=== PATIENT | female | born 1945 | race Caucasian/White ===

== ENCOUNTER → 2016-11-24 | Outpatient (CLI) | payer MEDICARE ==
[~2016-11-24] MED LIST: ASPI-650 PO; ATOR40TA78 PO; CLOP75TA PO; LISI-170 PO
[2016-11-24 15:34] LABS: ASPARTATE AMINO TRANSFERASE 20 U/L (15-37); BLOOD UREA NITROGEN 17 mg/dL (7-18)
== END | disposition home or self-care (01) ==
LOC: STAR 14:13
PROVIDERS: ATTEND Surgery
DX: Z01.818 Encounter for other preprocedural examination (principal)
CPT/HCPCS: 36415; 80053; 85025; 93005

== ENCOUNTER 2016-11-30 10:00 | Inpatient (IN) | payer MEDICARE ==
[~2016-11-30] VITALS: Ht 167.6 cm; Wt 69.7 kg
[2016-12-02] MEDS ORDERED: LACTATED RINGERS 1,000 ML IV SCH (07:14)
[2016-12-02] MEDS ORDERED: FENTANYL PF 250 MCG/5ML ONE (08:28)
[2016-12-02] MEDS ORDERED: HEPARIN 1,000 UNITS/ML, 10ML ONE (09:24)
[2016-12-02] MEDS ORDERED: LIDOCAINE/PF 1%, 30ML ONE (09:25)
[2016-12-02] MEDS ORDERED: BUPIVACAINE/PF-EPI 0.5% 1:200K ONE (09:25)
[2016-12-02] MEDS ORDERED: THROMBIN 20,000 UNIT VIAL TP ONE (09:25)
[2016-12-02] MEDS ORDERED: BACITRACIN 50,000 UNIT ONE (09:25)
[2016-12-02] MEDS ORDERED: MEPERIDINE/PF 25MG/0.5ML IVPush PRN (10:00)
[2016-12-02] MEDS ORDERED: METOCLOPRAMIDE 5 MG/ML, 2ML IV PRN (10:00)
[2016-12-02] MEDS ORDERED: PROMETHAZINE 25 MG/ML, 1ML IV PRN (10:00)
[2016-12-02] MEDS ORDERED: FENTANYL PF 100 MCG/2ML IV PRN (10:00)
[2016-12-02] MEDS ORDERED: hydrALAzine 20 MG/ML, 1ML IV PRN (10:00)
[2016-12-02] MEDS ORDERED: LABETALOL 5MG/ML, 20ML IV PRN (10:00)
[2016-12-02] MEDS ORDERED: HYDROmorphone 1 MG/ML, 1ML IV PRN (10:00)
[2016-12-02] MEDS ORDERED: ONDANSETRON 2MG/ML, 2ML IVPush PRN (10:00)
[2016-12-02] MEDS ORDERED: OXYcodone 5 MG/5 ML ORAL.SOL UDC PO PRN (10:00)
[2016-12-02] MEDS ORDERED: ACETAMINOPHEN 325 MG TABLET PO PRN ×2 (10:00→16:00)
[2016-12-02] MEDS ORDERED: PROTAMINE SULFATE 10 MG/ML, 5ML ONE (11:34)
[2016-12-02] MEDS ORDERED: DEXAMETHASONE 4 MG/ML, 1ML ONE (15:38)
[2016-12-02] MEDS ORDERED: NEOSTIGMINE 1 MG/ML, 10ML ONE (15:38)
[2016-12-02] MEDS ORDERED: ROCURONIUM 10 MG/ML ONE (15:38)
[2016-12-02] MEDS ORDERED: PHENYLEPHRINE 10 MG/ML ONE (15:38)
[2016-12-02] MEDS ORDERED: GLYCOPYRROLATE 0.2MG/1ML ONE (15:38)
[2016-12-02] MEDS ORDERED: EPHEDRINE 50 MG/ML, 1ML ONE (15:38)
[2016-12-02] MEDS ORDERED: ONDANSETRON 2MG/ML, 2ML ONE (15:38)
[2016-12-02] MEDS ORDERED: CEFAZOLIN 1,000 MG ONE (15:38)
[2016-12-02] MEDS ORDERED: PROPOFOL 10 MG/ML, 20ML ONE (15:38)
[2016-12-02] MEDS ORDERED: LABETALOL 5MG/ML, 20ML IVPush PRN (16:00)
[2016-12-02] MEDS ORDERED: ENOXAPARIN 40 MG/0.4 ML SQ SCH (16:00)
[2016-12-02] MEDS ORDERED: morphine SULFATE 10 MG/ML, 1ML IV PRN (16:00)
[2016-12-02] MEDS ORDERED: ONDANSETRON 2MG/ML, 2ML IV PRN (16:00)
[2016-12-02] MEDS ORDERED: HYDROcodone/APAP 5/325 TABLET PO PRN (16:00)
[2016-12-02] MEDS: POTASSIUM CHLORIDE 20 MEQ in D5%-LACTATED RINGERS 1,000 ML IV SCH (17:09)
[2016-12-02 18:55] VITALS: BP 97/51
[2016-12-02] MEDS ORDERED: CLOPIDOGREL 75 MG TABLET PO SCH (21:00)
[2016-12-02] MEDS ORDERED: ATORVASTATIN 40 MG TABLET PO SCH (21:00)
[2016-12-03 00:13] VITALS: BP 87/49
[2016-12-03 03:53] VITALS: BP 112/66
[2016-12-03] MEDS: POTASSIUM CHLORIDE 20 MEQ in D5%-LACTATED RINGERS 1,000 ML IV SCH (05:50)
[2016-12-03] MEDS ORDERED: ASPIRIN 325 MG TABLET EC PO SCH (06:00)
[2016-12-03 06:55] VITALS: BP 139/73
[2016-12-03] MEDS ORDERED: HYDR-3240 PO (07:35)
[2016-12-03] MEDS ORDERED: ONDA4TAB10 PO (07:36)
[2016-12-03] MEDS ORDERED: DOCU-30 PO (07:36)
[2016-12-03] MEDS ORDERED: LISINOPRIL 20 MG TABLET PO SCH (09:00)
== END 2016-12-03 08:50 | disposition home or self-care (01) | DRG 39 ==
LOC: ORIP 12-02 06:56 → 4NOR 12-02 15:14
PROVIDERS: ADMIT Surgery; ATTEND Surgery
PROC: 03UL0KZ Supplement Left Internal Carotid Artery with Nonautologous Tissue Substitute, Open Approach (ICD-10-PCS; 2016-12-02)
PROC: 03CL0ZZ Extirpation of Matter from Left Internal Carotid Artery, Open Approach (ICD-10-PCS; principal; 2016-12-02 09:00)
DX: I65.22 Occlusion and stenosis of left carotid artery (principal); E78.5 Hyperlipidemia, unspecified; I10 Essential (primary) hypertension; F17.210 Nicotine dependence, cigarettes, uncomplicated; Z81.8 Family history of other mental and behavioral disorders; Z79.899 Other long term (current) drug therapy; Z86.73 Personal history of transient ischemic attack (TIA), and cerebral infarction without residual deficits; Z80.9 Family history of malignant neoplasm, unspecified; D75.1 Secondary polycythemia; F10.10 Alcohol abuse, uncomplicated
CPT/HCPCS: 36415; 86850; 86900; 95938; 95941; C1729; J0690; J1100; J1644; J1650; J2405; J2704; J2710; J2720; J3010; J3480; J3490; C1768; J2370; J7121